=== PATIENT | male | born 1990 | race Caucasian/White ===

== ENCOUNTER 2021-02-16 18:03 | Emergency (ER) | payer OTHER ==
[2021-02-16 18:09] VITALS: BP 126/77; PULSE 73; TEMP 97; BMI 26.4
== END 2021-02-16 21:00 | disposition home or self-care (01) ==
LOC: JER 18:03
DX: Z11.52 Encounter for screening for COVID-19 (principal)
CPT/HCPCS: 99284-25; C9803; U0003; U0005

== ENCOUNTER 2023-02-04 19:43 | Emergency (ER) | payer OTHER ==
[2023-02-04 20:02] VITALS: BP 119/65; PULSE 73; RESP 18; TEMP 98.2; BMI 29.2
== END 2023-02-04 21:54 | disposition home or self-care (01) ==
LOC: JERFT 19:43
PROC: 0H9QXZZ Drainage of Finger Nail, External Approach (ICD-10-PCS; principal; 2023-02-04)
DX: S60.122A Contusion of left index finger with damage to nail, initial encounter (principal); W23.0XXA Caught, crushed, jammed, or pinched between moving objects, initial encounter
CPT/HCPCS: 73130-TC-LT-FY; 99283-25

== ENCOUNTER 2025-01-04 16:29 | Inpatient (IN) | payer OTHER ==
[2025-01-04 17:53] LABS: BASO % 0.6 % (0-2.0); EOS % 4.6 % (0-4.5); HEMATOCRIT 48.5 % (35.4-49); HEMOGLOBIN 16.4 GM/dL (11.7-16.9); LYMPH % 17.8 % (8-40); MCH 29.1 pg (25.7-33.7); MCHC 33.8 g/dl (32.0-35.9); MEAN PLT VOLUME 7.6 fl (7.5-11.1); MONO % 7.2 % (3.8-10.2); NEUT % 69.8 % (42.8-82.8); PLATELET COUNT 305 10^3/uL (134-434); RBC 5.64 M/mm3 (4.00-5.60); RDW 13.3 % (11.9-15.9); WHITE BLOOD COUNT 12.2 K/mm3 (4.0-10.0)
[2025-01-04] MEDS: IBUPROFEN 600 MG TABLET (FP) PO ONE (17:59)
[2025-01-04] MEDS: ACETAMINOPHEN 500 MG TABLET (FP) PO ONE (17:59)
[2025-01-04] MEDS: METHOCARBAMOL 500 MG TABLET PO ONE (17:59)
[2025-01-04 18:06] LABS: INR 1.03 (0.83-1.09); PROTHROMBIN TIME (PATIENT) 11.3 SEC (9.7-13.0)
[2025-01-04 18:19] LABS: BLOOD UREA NITROGEN 11.4 mg/dL (7-18); CALCIUM 9.8 mg/dL (8.5-10.1)
[2025-01-04 18:23] LABS: CREATININE 1.1 mg/dL (0.55-1.3)
[2025-01-04] MEDS ORDERED: morphine SULFATE 4 MG/ML VIAL ONE (18:28)
[2025-01-04] MEDS: morphine CARPU-JECT 4 MG/1 ML DISP.SYRIN IVPUSH ONE (18:47)
[2025-01-04] MEDS ORDERED: ONDANSETRON 4 MG/2 ML VIAL ONE (19:00)
[2025-01-04 19:13] LABS: HIV INTERPRETATION NEGATIVE (NEGATIVE)
[2025-01-04] MEDS ORDERED: KETOROLAC TROMETHAMINE 15 MG/ML VIAL ONE (20:09)
[2025-01-04] MEDS: KETOROLAC TROMETHAMINE 15 MG/ML VIAL IVPUSH ONE (20:14)
[2025-01-04] MEDS ORDERED: MORPHINE SULFATE 2 MG/ML SYRINGE ONE (22:40)
[2025-01-04] MEDS: MORPHINE SULFATE 2 MG/ML SYRINGE IVPUSH PRN (22:40)
[2025-01-05] MEDS: ACETAMINOPHEN 1000 MG/100 ML BAG IVPB PRN (00:08)
[2025-01-05 00:53] VITALS: BMI 29.7
[2025-01-05] MEDS: BUDESONIDE/FORMETEROL FUMARATE 80/4.5 mcg INHALER IH ONE (02:30)
[2025-01-05 08:39] LABS: HEMATOCRIT 43.4 % (35.4-49); MCH 29.8 pg (25.7-33.7); MCHC 34.7 g/dl (32.0-35.9); MEAN CELL VOLUME 85.9 fl (80-96); PLATELET COUNT 261 10^3/uL (134-434); RBC 5.05 M/mm3 (4.00-5.60); RDW 13.2 % (11.9-15.9); WHITE BLOOD COUNT 9.7 K/mm3 (4.0-10.0)
[2025-01-05 09:02] LABS: POTASSIUM 3.7 mmol/L (3.5-5.1)
[2025-01-05 09:05] LABS: BLOOD UREA NITROGEN 13.9 mg/dL (7-18); CALCIUM 9.4 mg/dL (8.5-10.1)
[2025-01-05 09:14] LABS: CREATININE 1.1 mg/dL (0.55-1.3)
[2025-01-05] MEDS ORDERED: ENOXAPARIN NA (PORCINE) 40 MG/0.4 ML DISP.SYRIN SQ SCH (10:00)
[2025-01-05] MEDS: BUDESONIDE/FORMETEROL FUMARATE 80/4.5 mcg INHALER IH SCH (14:33)
[2025-01-05] MEDS: HYDROmorphone HCL CARPU-JECT 2 MG/1 ML DISP.SYRIN IVPB ONE (23:57)
[2025-01-06] MEDS: ACETAMINOPHEN 1000 MG/100 ML BAG IVPB SCH (02:52)
[2025-01-06] MEDS ORDERED: HYDROmorphone HCl 2 MG/ML VIAL IVPUSH PRN ×3 (06:28→14:47)
[2025-01-06 08:01] LABS: POTASSIUM 3.8 mmol/L (3.5-5.1)
[2025-01-06 08:04] LABS: CALCIUM 9.3 mg/dL (8.5-10.1)
[2025-01-06 08:05] LABS: BLOOD UREA NITROGEN 13.7 mg/dL (7-18)
[2025-01-06 08:08] LABS: CREATININE 0.9 mg/dL (0.55-1.3)
[2025-01-06 08:15] LABS: BASO % 0.2 % (0-2.0); HEMATOCRIT 43.7 % (35.4-49); HEMOGLOBIN 14.7 GM/dL (11.7-16.9); LYMPH % 17.6 % (8-40); MCH 29.1 pg (25.7-33.7); MCHC 33.5 g/dl (32.0-35.9); MEAN CELL VOLUME 86.8 fl (80-96); MEAN PLT VOLUME 7.9 fl (7.5-11.1); MONO % 8.2 % (3.8-10.2); PLATELET COUNT 260 10^3/uL (134-434); RBC 5.03 M/mm3 (4.00-5.60); RDW 12.8 % (11.9-15.9); WHITE BLOOD COUNT 11.4 K/mm3 (4.0-10.0)
[2025-01-06 08:54] LABS: COCAINE, UR NEGATIVE (NEGATIVE); METHADONE, UR NEGATIVE (NEGATIVE); URINE BARBITURATES NEGATIVE (NEGATIVE); URINE BENZODIAZEPINES NEGATIVE (NEGATIVE)
[2025-01-06 08:55] LABS: PHENCYCLIDINE,URINE NEGATIVE (NEGATIVE); URINE AMPHETAMINES NEGATIVE (NEGATIVE)
[2025-01-06 08:58] LABS: OPIATES, URI POSITIVE (NEGATIVE)
[2025-01-06] MEDS: HYDROmorphone HCL CARPU-JECT 2 MG/1 ML DISP.SYRIN IVPUSH ONE (14:38)
[2025-01-06] MEDS: CALCIUM CARBONATE 650 MG TABLET PO ONE (21:58)
[2025-01-06] MEDS: HYDROmorphone HCL CARPU-JECT 2 MG/1 ML DISP.SYRIN IVPUSH PRN (22:04)
[2025-01-07] MEDS: HYDROmorphone HCL CARPU-JECT 2 MG/1 ML DISP.SYRIN IVPUSH ONE (07:40)
[2025-01-07 08:30] LABS: HEMATOCRIT 43.5 % (35.4-49); HEMOGLOBIN 15.3 GM/dL (11.7-16.9); MCH 29.9 pg (25.7-33.7); MCHC 35.1 g/dl (32.0-35.9); MEAN CELL VOLUME 85.2 fl (80-96); PLATELET COUNT 269 10^3/uL (134-434); RDW 12.6 % (11.9-15.9)
[2025-01-07 08:43] LABS: POTASSIUM 3.9 mmol/L (3.5-5.1)
[2025-01-07 08:49] LABS: CALCIUM 9.7 mg/dL (8.5-10.1)
[2025-01-07 08:54] LABS: BILIRUBIN,TOTAL 0.6 mg/dL (0.2-1); TOT PROT 7.6 g/dl (6.4-8.2)
[2025-01-07] MEDS: FAMOTIDINE 20 MG TABLET PO ONE (16:58)
[2025-01-07] MEDS: ACETAMINOPHEN 325 MG TABLET (FP) PO PRN (19:28)
[2025-01-08 07:22] LABS: HEMATOCRIT 46.3 % (35.4-49); HEMOGLOBIN 15.5 GM/dL (11.7-16.9); MCHC 33.4 g/dl (32.0-35.9); MEAN CELL VOLUME 86.9 fl (80-96); MEAN PLT VOLUME 8.1 fl (7.5-11.1); PLATELET COUNT 306 10^3/uL (134-434); RBC 5.33 M/mm3 (4.00-5.60); RDW 12.9 % (11.9-15.9); WHITE BLOOD COUNT 8.3 K/mm3 (4.0-10.0)
[2025-01-08 07:34] LABS: CALCIUM 9.8 mg/dL (8.5-10.1)
[2025-01-08 07:35] LABS: ALBUMIN 4.1 g/dl (3.4-5.0); BLOOD UREA NITROGEN 18.2 mg/dL (7-18)
[2025-01-08 07:38] LABS: CREATININE 0.9 mg/dL (0.55-1.3)
[2025-01-08 07:39] LABS: BILIRUBIN,TOTAL 0.4 mg/dL (0.2-1); TOT PROT 7.9 g/dl (6.4-8.2)
[2025-01-08] MEDS: MUPIROCIN 2% TOPICAL OINTMENT FOR DECOLONIZATION NS SCH (16:24)
[2025-01-08] MEDS: ALBUTEROL SO4 2.5/IPRATROPIUM 0.5 INH SOL 3 ML VIAL.NEB. NEB PRN (16:30)
[2025-01-08] MEDS: CHLORHEXIDINE GLUCONATE 4% CLEANSER FOR DECOLONIZATION TP SCH (21:45)
[2025-01-08] MEDS: HYDROCORTISONE 1% TOPICAL CREAM 30 GM TUBE TP PRN (21:45)
[2025-01-09] MEDS ORDERED: ACETAMINOPHEN 325 MG TABLET (FP) PO PRN ×2 (07:38→08:39)
[2025-01-09] MEDS: BUDESONIDE/FORMETEROL FUMARATE 80/4.5 mcg INHALER IH SCH (09:10)
[2025-01-09 09:55] LABS: HEMATOCRIT 44.2 % (35.4-49); HEMOGLOBIN 15.2 GM/dL (11.7-16.9); MCH 29.5 pg (25.7-33.7); MCHC 34.4 g/dl (32.0-35.9); MEAN CELL VOLUME 85.9 fl (80-96); MEAN PLT VOLUME 7.6 fl (7.5-11.1); PLATELET COUNT 266 10^3/uL (134-434); RBC 5.14 M/mm3 (4.00-5.60); RDW 13.1 % (11.9-15.9); WHITE BLOOD COUNT 7.4 K/mm3 (4.0-10.0)
[2025-01-09 10:02] LABS: INR 1.05 (0.83-1.09); PROTHROMBIN TIME (PATIENT) 11.6 SEC (9.7-13.0)
[2025-01-09 10:29] LABS: POTASSIUM 4.4 mmol/L (3.5-5.1)
[2025-01-09 10:31] LABS: BLOOD UREA NITROGEN 19.4 mg/dL (7-18); CALCIUM 10.1 mg/dL (8.5-10.1)
[2025-01-09 10:33] LABS: MAGNESIUM 2.3 mg/dL (1.8-2.4)
[2025-01-09 10:36] LABS: PHOSPHOROUS 4.2 mg/dL (2.5-4.9)
[2025-01-09] MEDS: HYDROmorphone HCL CARPU-JECT 2 MG/1 ML DISP.SYRIN IVPUSH PRN (12:16)
[2025-01-09] MEDS ORDERED: LIDOCAINE HCL/PF 2% SDV 5ML VIAL ONE (13:55)
[2025-01-09] MEDS ORDERED: PROPOFOL 60 ML ONE (13:56)
[2025-01-09] MEDS ORDERED: MIDAZOLAM HCL 2 MG/2 ML SINGLE DOSE VIAL ONE (13:57)
[2025-01-09] MEDS ORDERED: GLYCOPYRROLATE 0.2 MG/1 ML VIAL ONE (13:59)
[2025-01-09] MEDS ORDERED: ROCURONIUM BROMIDE 50 MG/5 ML SYRINGE ONE ×3 (14:02→16:31)
[2025-01-09] MEDS ORDERED: ALBUTEROL SO4 HFA INHALER IH ONE (14:51)
[2025-01-09] MEDS ORDERED: DEXMEDETOMIDINE HCL 200 MCG/2 ML IVPB ONE (14:57)
[2025-01-09] MEDS ORDERED: BUPIVACAINE HCL/PF 0.25% (2.5MG/ML) 10 ML VIAL ONE ×2 (15:02→16:12)
[2025-01-09] MEDS: ceFAZolin SODIUM 1 GM VIAL IVPB ONE ×2 (16:00)
[2025-01-09] MEDS ORDERED: DEXAMETHASONE SOD PHOSPHATE 4 MG/1 ML VIAL ONE (16:01)
[2025-01-09] MEDS: BUPIVACAINE HCL/PF 0.25% (2.5MG/ML) 10 ML VIAL IJ ONE ×3 (16:27)
[2025-01-09] MEDS ORDERED: PROPOFOL 20 ML ONE (16:35)
[2025-01-09] MEDS ORDERED: SUGAMMADEX SODIUM 200 MG/2 ML VIAL ONE (16:49)
[2025-01-09] MEDS ORDERED: HYDROmorphone *PCA* 10MG/50ML DISP.SYRIN PCA SCH (18:00)
[2025-01-09] MEDS ORDERED: HYDROmorphone HCL CARPU-JECT 2 MG/1 ML DISP.SYRIN ONE (18:00)
[2025-01-09] MEDS ORDERED: HYDROmorphone *PCA* 10MG/50ML DISP.SYRIN ONE (18:06)
[2025-01-09] MEDS: HYDROmorphone HCL CARPU-JECT 2 MG/1 ML DISP.SYRIN IVPUSH ONE (18:16)
[2025-01-09] MEDS: HYDROmorphone *PCA* 10MG/50ML DISP.SYRIN PCA SCH ×2 (18:17→18:29)
[2025-01-09] MEDS: ACETAMINOPHEN 1000 MG/100 ML BAG IVPB SCH (18:19)
[2025-01-10] MEDS: KETOROLAC TROMETHAMINE 15 MG/ML VIAL IVPUSH PRN (03:46)
[2025-01-10 07:02] LABS: BASO % 0.1 % (0-2.0); HEMATOCRIT 41.9 % (35.4-49); HEMOGLOBIN 14.1 GM/dL (11.7-16.9); MCHC 33.6 g/dl (32.0-35.9); MEAN CELL VOLUME 86.2 fl (80-96); MEAN PLT VOLUME 7.9 fl (7.5-11.1); MONO % 8.7 % (3.8-10.2); NEUT % 86.2 % (42.8-82.8); PLATELET COUNT 306 10^3/uL (134-434); RBC 4.86 M/mm3 (4.00-5.60); RDW 12.8 % (11.9-15.9); WHITE BLOOD COUNT 14.9 K/mm3 (4.0-10.0)
[2025-01-10 07:19] LABS: POTASSIUM 4.4 mmol/L (3.5-5.1)
[2025-01-10 07:28] LABS: ALBUMIN 3.7 g/dl (3.4-5.0); BLOOD UREA NITROGEN 20.8 mg/dL (7-18); CALCIUM 9.4 mg/dL (8.5-10.1)
[2025-01-10 07:29] LABS: MAGNESIUM 2.1 mg/dL (1.8-2.4)
[2025-01-10 07:32] LABS: PHOSPHOROUS 4.4 mg/dL (2.5-4.9)
[2025-01-10 07:33] LABS: BILIRUBIN,TOTAL 0.4 mg/dL (0.2-1); TOT PROT 7.3 g/dl (6.4-8.2)
[2025-01-10] MEDS: ONDANSETRON 4 MG/2 ML VIAL IVPUSH PRN (09:06)
[2025-01-10] MEDS: ACETAMINOPHEN 1000 MG/100 ML BAG IVPB ONE (09:33)
[2025-01-10] MEDS: HEPARIN NA (PORCINE) 5,000 UNITS/ML 1ML VIAL SQ SCH (11:30)
[2025-01-10] MEDS: POLYETHYLENE GLYCOL (HEALTHYLAX) 3350 17 GM PACKET PO SCH (11:30)
[2025-01-10] MEDS: ACETAMINOPHEN 1000 MG/100 ML BAG IVPB SCH (11:40)
[2025-01-10] MEDS: KETOROLAC TROMETHAMINE 15 MG/ML VIAL IVPUSH SCH (13:23)
[2025-01-10] MEDS: oxyCODONE HCL 5 MG TABLET PO PRN (14:28)
[2025-01-10] MEDS: HYDROmorphone HCL CARPU-JECT 2 MG/1 ML DISP.SYRIN IVPUSH ONE (17:51)
[2025-01-10] MEDS: ACETAMINOPHEN 325 MG TABLET (FP) PO SCH (19:39)
[2025-01-11 06:21] VITALS: TEMP 98.3
[2025-01-11 06:41] LABS: HEMATOCRIT 39.4 % (35.4-49); HEMOGLOBIN 13.1 GM/dL (11.7-16.9); MCH 29.2 pg (25.7-33.7); MCHC 33.4 g/dl (32.0-35.9); MEAN CELL VOLUME 87.4 fl (80-96); MEAN PLT VOLUME 7.4 fl (7.5-11.1); PLATELET COUNT 243 10^3/uL (134-434); RDW 12.6 % (11.9-15.9); WHITE BLOOD COUNT 10.4 K/mm3 (4.0-10.0)
[2025-01-11 06:48] LABS: POTASSIUM 4.1 mmol/L (3.5-5.1)
[2025-01-11] MEDS: oxyCODONE HCL 5 MG TABLET PO PRN (06:50)
[2025-01-11 06:51] LABS: ALBUMIN 3.4 g/dl (3.4-5.0); CALCIUM 9.1 mg/dL (8.5-10.1)
[2025-01-11 06:52] LABS: BLOOD UREA NITROGEN 21.1 mg/dL (7-18)
[2025-01-11 06:56] LABS: BILIRUBIN,TOTAL 0.6 mg/dL (0.2-1); TOT PROT 6.6 g/dl (6.4-8.2)
[2025-01-11 12:07] VITALS: RESP 20
[2025-01-11 12:12] VITALS: BP 135/82; PULSE 91
== END 2025-01-11 13:00 | disposition home or self-care (01) | DRG 121 ==
LOC: JER 16:29 → JERBED 19:53 → UNDOADMIN 20:30 → JERBED 20:30 → J4W 23:22 → JICU 01-08 15:14
PROVIDERS: ADMIT Internal Medicine; ATTEND Internal Medicine Pulmonary Disease
PROC: 0B9 Respiratory System, Drainage (ICD-10-PCS; 2025-01-09)
PROC: 3E0L4GC Introduction of Other Therapeutic Substance into Pleural Cavity, Percutaneous Endoscopic Approach (ICD-10-PCS; 2025-01-09)
PROC: 0BQC4ZZ Repair Right Upper Lung Lobe, Percutaneous Endoscopic Approach (ICD-10-PCS; principal; 2025-01-09 14:00)
DX: J93.0 Spontaneous tension pneumothorax (principal); J98.2 Interstitial emphysema; F12.90 Cannabis use, unspecified, uncomplicated; J45.909 Unspecified asthma, uncomplicated; L40.9 Psoriasis, unspecified; R07.89 Other chest pain
CPT/HCPCS: 0241U-QW; 36415; 71045-TC-FY; 71046-TC-FY; 71250-TC; 80048; 80053; 80307; 83735; 84100; 84484; 85025; 85027; 85610; 85730; 86803; 86850; 86900; 86901; 87389; 88307-TC; 93005; 93010; 94010; 94640; 97116-GP; 97162-GP; 99285-25; J0131; J1644